=== PATIENT | female | born 1945 | race Caucasian/White ===

== ENCOUNTER 2018-06-21 10:02 | Day surgery (SDC) | payer MEDICARE, BC ==
[~2018-06-21 10:02] MED LIST: NEOSTIGMINE 10 MG INJ; ROCURONIUM 50 MG INJ; SOD CHLORIDE 0.9% 1,000 ML IV
[2018-06-21] MEDS ORDERED: ETOMIDATE 20 MG INJ (11:18)
[2018-06-21] MEDS ORDERED: LIDOCAINE 2% (SDV) 5 ML INJ (11:18)
[2018-06-21] MEDS ORDERED: SUCCINYLCHOLINE CHLORIDE 100 MG/5 ML SYG IV (11:18)
[2018-06-21] MEDS ORDERED: MIDAZOLAM 1 MG/ML 2 ML INJ (11:18)
[2018-06-21] MEDS ORDERED: FENTAnyl 50 MCG/ML VIAL ×2 (11:18→11:19)
[2018-06-21] MEDS ORDERED: ROPIVACAINE 0.5 % 30 ML VIAL (11:27)
[2018-06-21] MEDS ORDERED: LABETALOL HCL 20MG INJ IV (11:30)
[2018-06-21] MEDS ORDERED: hydrALAzine 20 MG INJ IV (11:30)
[2018-06-21] MEDS ORDERED: HYDROmorphONE 1 MG/5 ML IV SYRINGE IV (11:30)
[2018-06-21] MEDS ORDERED: PHENYLephrine (100 MCG/ML) 5ML SYG (11:40)
[2018-06-21] MEDS ORDERED: DEXAMETHASONE 4 MG/ML 5 ML INJ (11:45)
[2018-06-21] MEDS: CEFAZOLIN 2 GM/50 ML (PMX) 50 ML IVPB (11:45)
[2018-06-21] MEDS ORDERED: ONDANSETRON 4 MG INJ (11:45)
[2018-06-21] MEDS ORDERED: EPHEDrine 50 MG INJ (11:45)
[2018-06-21] MEDS ORDERED: CEFAZOLIN 1 GM INJ (11:45)
[2018-06-21] MEDS ORDERED: GLYCOPYRROLATE 0.4 MG INJ (12:25)
[2018-06-21] MEDS: BUPIVACAINE 0.25% (MPF) 30 ML INJ (12:50)
[2018-06-21] MEDS: HYDROCODONE/APAP (5/325) TAB PO (13:01)
[2018-06-21] MEDS: MEPERIDINE 25 MG INJ IV (13:01)
[2018-06-21] MEDS: ONDANSETRON 4 MG INJ IV (13:01)
[2018-06-21] MEDS: HYDROmorphONE 1 MG/5 ML IV SYRINGE IV (13:10)
== END 2018-06-21 14:53 | disposition home or self-care (01) ==
LOC: SDS 10:02
DX: K80.10 Calculus of gallbladder with chronic cholecystitis without obstruction (principal); I10 Essential (primary) hypertension; E78.5 Hyperlipidemia, unspecified; E11.9 Type 2 diabetes mellitus without complications
CPT/HCPCS: 47562; 82962; 88304